=== PATIENT | male | born 1990 | race Two or more races ===

== ENCOUNTER 2023-11-07 04:56 | Emergency (ER) | payer OTHER ==
[~2023-11-07] VITALS: Ht 180.3 cm; Wt 72.6 kg
[2023-11-07] MEDS ORDERED: KETOROLAC TROMETHAMINE 60 MG VIAL IM STA (05:41)
[2023-11-07 06:30] LABS: HEMATOCRIT 37.9 % (39.0-48.0); HEMOGLOBIN 13.1 g/dL (13-16.00); MEAN CORPUSCULAR HEMOGLOBIN 30.4 pg (27.00-32.0); MEAN CORPUSCULAR HGB CONC 34.5 g/dl (32.0-36.0); PLATELET COUNT 261 K/uL (150-450); RED BLOOD COUNT 4.31 M/uL (4.00-6.00)
[2023-11-07 06:56] LABS: CALCIUM 8.7 mg/dL (8.5-10.1); CREATININE SERUM 0.91 mg/dL (0.70-1.30); GFR 96.55; POTASSIUM 3.82 mEq/L (3.5-5.1)
[2023-11-07] MEDS ORDERED: NORFLEX100MG PO (07:33)
[2023-11-07] MEDS ORDERED: KETO10TA2 PO (07:33)
== END 2023-11-07 07:38 ==
LOC: ER 04:56
PROVIDERS: General Practice
DX: R07.89 Other chest pain (principal)
CPT/HCPCS: 36415; 71046; 93005; 96372; 99283; J1885